=== PATIENT | female | born 1940 | race Caucasian/White ===

== ENCOUNTER 2016-09-22 13:53 | Outpatient (CLI) | payer MEDICARE | END 2016-09-22 13:54 | disposition critical access hospital (66) | LOC: EMS 13:53 | PROVIDERS: ATTEND Surgery | DX: S01.81XA Laceration without foreign body of other part of head, initial encounter (principal); W01.0XXA Fall on same level from slipping, tripping and stumbling without subsequent striking against object, initial encounter; Y92.512 Supermarket, store or market as the place of occurrence of the external cause | CPT/HCPCS: A0425; A0429 ==

== ENCOUNTER 2016-09-22 14:24 | Emergency (ER) | payer MEDICARE ==
[2016-09-22] MEDS ORDERED: LIDOCAINE 1% 2 ML VIAL ONE (15:28)
--- NOTE | 2016-09-22 16:59 | CT Report ---
EXAM: CT MAXILLOFACIAL WITHOUT CONTRAST EXAM DATE: 09/22/2016 04:10 PM. CLINICAL HISTORY: Fall, with chin contusion, malocclusion, TMJ pain. COMPARISONS: None. TECHNIQUE: Thin-section axial images were acquired of the face without contrast. Post-processing: Cor onal and sagittal reformats. Other: None. In accordance with CT protocol optimization, one or more of the following dose reduction techniques w ere utilized for this exam: automated exposure control, adjustment of mA and/or KV based on patient s ize, or use of iterative reconstructive technique. FINDINGS: Bones: Displaced fractures of the neck of the mandible on the right and the ramus of the mandible on the left. Temporomandibular Joints: The mandibular condyles are displaced forward in relation to the TMJ fossae . Sinuses: Normal. No mucosal thickening or fluid levels. Other: Degenerative disk disease noted at C4-C5. IMPRESSION: Displaced bilateral mandibular fractures, involving the neck on the right and involving t he ramus on the left. [facility] Referring Provider Line: [phone] SITE ID: [id number]
--- NOTE | 2016-09-22 17:15 | ED Physician Documentation ---
PD HPI Fall - Stated complaint Stated Complaint: GLF - Chief complaint Chief Complaint: Heent - History obtained from History obtained from: Patient - History of Present Illness Mechanism of injury: Tripped Fall distance: Standing position Where injury occurred: Other ([place]) Timing - onset: Today Injury(ies) location: Face Quality of pain: Pain Associated symptoms: Other (jaw pain and malloclusion). 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 She has a laceration to the tip of the chin and pain in the jaw bilaterally. She does have malocclusion on the left side. Review of Systems Constitutional: denies: Fever Eyes: denies: Decreased vision Ears: denies: Ear pain Nose: denies: Rhinorrhea / runny nose, Congestion Throat: denies: Sore throat Respiratory: denies: Cough GI: denies: Nausea, Vomiting PD PAST MEDICAL HISTORY - Past Medical History Past Medical History: Yes Cardiovascular: Hypertension - Past Surgical History Past Surgical History: No - Present Medications Home Medications: Ambulatory Orders Medication Instructions Recorded Confirmed Lisinopril 10 mg PO DAILY 09/22/16 09/22/16 - Allergies Allergies/Adverse Reactions: Allergies Allergy/AdvReac Type Severity Reaction Status Date / Time No Known Drug Allergies Allergy Verified 09/22/16 14:32 - Social History Does the pt smoke?: No Smoking Status: Never smoker Does the pt drink ETOH?: No Does the pt have substance abuse?: No PD ED PE NORMAL - Vitals Vital signs reviewed: Yes (hypertension ) - General General: Alert and oriented X 3, No acute distress, Well developed/nourished - HEENT HEENT: PERRL, EOMI, Other (There is a 2 and half centimeter laceration at the point of the chin without evidence of foreign material in the laceration. She is able to open her mouth and close her mouth and does have malocclusion on the left side. She does not have any intraoral bleeding.) - Neck Neck: Supple, no meningeal sign, No bony TTP - Respiratory Respiratory: No respiratory distress - Back Back: No spinal TTP - Derm Derm: Normal color, Warm and dry, No rash - Extremities Extremities: No deformity, No edema - Neuro Neuro: Alert and oriented X 3, liability claims representative 2-12 intact, No motor deficit, No sensory deficit, Normal speech - Psych Psych: Normal mood, Normal affect Results - Vitals Vitals: Vital Signs - 24 hr 09/22/16 09/22/16 14:31 17:58 Temperature 36.3 C L Heart Rate 87 64 Respiratory 16 16 Rate Blood Pressure 163/87 H 154/72 H O2 Saturation 99 100 Oxygen O2 Source Nasal cannula - Rads (name of study) CT facial bones. Radiology: Prelim report reviewed (Impression: Displaced bilateral mandibular fractures, involving the neck on the right and involving the ramus on the left.) , Final report received, EMP read indepedently, See rad report Procedures - Laceration (location) chin Length in cm: 2.5 Wound type: Linear, Irregular, Clean Neurovascular status: Sensory intact, Motor intact, Vascular intact Anesthesia: Lidocaine 1% Wound Preparation: Hibiclens, Irrigated copiously NS, Wound explored, To the base Skin layer closure: Nylon, Interrupted, Size #-0 - enter number (6-0) Other: Patient tolerated well, No complications, Neurovascular intact, Tetanus booster given Complexity: Simple PD MEDICAL DECISION MAKING - ED course Complexity details: reviewed old records, reviewed results, re-evaluated patient , considered differential, d/w patient, d/w senior solutions consultant (Dr. Tucker) ED course: 76-year-old female with a ground-level fall and lacerations to the chin has bilateral mandibular fracture. This is worse on the left than the right and she does have some malocclusion on that side. The laceration under chin is closed with 6-0 nylon and referral was made to Dr. Sohail Tucker in [place] the oral maxillofacial surgeon. Departure - Departure Disposition: 01 Home, Self Care Clinical Impression: Chin laceration Qualifiers: Encounter type: initial encounter Qualified Code(s): S01.81XA - Laceration without foreign body of other part of head, initial encounter Fracture, mandible Qualifiers: Encounter type: initial encounter Fracture type: closed Mandible location: ramus Laterality: left Qualified Code(s): S02.642A - Fracture of ramus of left mandible, initial encounter for closed fracture Condition: Stable Instructions: ED Laceration Facial Sutr Tape, ED Fx Mandible Follow-Up: SOHAIL TUCKER [Physician No Access] - Comments: Follow-up tomorrow morning at 8am with Dr. Sohail [place] in [place] [id number], [place] [address].. Discharge Date/Time: 09/22/16 17:58
[2016-09-22] MEDS ORDERED: TETANUS/DIPHTHERIA/PERTUSSIS 0.5 ML SYRINGE IM ONE (17:42)
[2016-09-22] MEDS: TETANUS/DIPHTHERIA/PERTUSSIS 0.5 ML SYRINGE IM ONE (17:42)
[2016-09-22 17:59] VITALS: BP 154/72
== END 2016-09-22 17:58 | disposition home or self-care (01) ==
LOC: EDUNIT# → ED 14:24
DX: S02.642A Fracture of ramus of left mandible, initial encounter for closed fracture (principal); S02.601A Fracture of unspecified part of body of right mandible, initial encounter for closed fracture; S01.81XA Laceration without foreign body of other part of head, initial encounter; W01.198A Fall on same level from slipping, tripping and stumbling with subsequent striking against other object, initial encounter; Y92.89 Other specified places as the place of occurrence of the external cause; Z23 Encounter for immunization; I10 Essential (primary) hypertension
CPT/HCPCS: 12011; 70486; 90471; 99283; 99284

== ENCOUNTER 2016-09-29 13:17 | Outpatient (CLI) | payer MEDICARE ==
[2016-09-29 17:57] LABS: BASOPHILS # (AUTO) 0.1 10^3/uL (0.0-0.1); BASOPHILS % (AUTO) 0.9 %; EOSINOPHILS # (AUTO) 0.2 10^3/uL (0.0-0.7); EOSINOPHILS % (AUTO) 3.2 %; HCT - HEMATOCRIT 39.1 % (37.0-47.0); MEAN CORPUSCULAR HEMOGLOBIN 34.7 pg (27.0-31.0); MEAN CORPUSCULAR HGB CONC 33.2 g/dL (32.0-36.0); MEAN CORPUSCULAR VOLUME 104.5 fL (81.0-99.0); MEAN PLATELET VOLUME 9.3 fL (7.9-10.8); MONOCYTES # (AUTO) 0.7 10^3/uL (0.0-1.0); MONOCYTES % (AUTO) 10.5 %; NEUTROPHILS # (AUTO) 3.6 10^3/uL (1.5-6.6); NEUTROPHILS % (AUTO) 54.4 %; NUCLEATED RED BLOOD CELLS AUTO 0.1 /100WBC; RED BLOOD COUNT 3.74 10^6/uL (4.20-5.40); RED CELL DISTRIBUTION WIDTH 13.1 % (12.0-15.0); UNCORRECTED WHITE BLOOD COUNT 6.6 x10^3/uL; WHITE BLOOD COUNT 6.6 x10^3/uL (4.8-10.8)
[2016-09-29 19:00] LABS: CALCIUM 9.2 mg/dL (8.5-10.3); CREATININE 0.8 mg/dL (0.4-1.0); POTASSIUM 3.9 mmol/L (3.5-5.0)
== END 2016-09-29 13:18 | disposition home or self-care (01) ==
LOC: LAB.S 13:17
PROVIDERS: ATTEND Dentist Oral and Maxillofacial Surgery
DX: S02.611A Fracture of condylar process of right mandible, initial encounter for closed fracture (principal); S02.612A Fracture of condylar process of left mandible, initial encounter for closed fracture
CPT/HCPCS: 36415; 80048; 85025

== ENCOUNTER 2017-03-19 08:10 | Outpatient (CLI) | payer MEDICARE ==
[2017-03-19 11:59] LABS: BUN - BLOOD UREA NITROGEN 9 mg/dL (6-20); CALCIUM 9.2 mg/dL (8.5-10.3); CARBON DIOXIDE - CO2 26 mmol/L (21-32); CHLORIDE 104 mmol/L (101-111); CHOL/HDL RATIO 2.6 (<4.4); CHOLESTEROL 228 mg/dL; CREATININE 0.9 mg/dL (0.4-1.0); GFR - MDRD 61 (>89); GLUCOSE 93 mg/dL (70-100); HDL CHOLESTEROL 88 mg/dL; LDL CHOLESTEROL,CALCULATED 126 mg/dL; LDL/HDL RATIO 1.4 (<4.4); SODIUM 138 mmol/L (135-145); VLDL CHOLESTEROL 14 mg/dL
== END 2017-03-19 08:11 | disposition home or self-care (01) ==
LOC: LAB.F 08:10
PROVIDERS: ATTEND Internal Medicine
DX: F32.9 Major depressive disorder, single episode, unspecified (principal); I10 Essential (primary) hypertension; Z13.6 Encounter for screening for cardiovascular disorders
CPT/HCPCS: 36415; 80048; 80061; 83721

== ENCOUNTER 2017-04-07 13:01 | Outpatient (CLI) | payer MEDICARE ==
--- NOTE | 2017-04-08 15:25 | DEXA Report ---
DEXA: 04/07/2017 CLINICAL INDICATION: Postmenopausal. TECHNIQUE: Dual energy x-ray absorptiometry (DXA) was performed on a [employer] system. Regions measured are the AP spine, femoral neck, and, if needed, forearm. COMPARISON: None. In accordance with the International Society for Clinical Densitometry (ISCD) guidelines, data from previous exams may be reanalyzed using current recommendations and techniques. This is done to allow a more accurate basis for comparison with the current study. FINDINGS The data for the lumbar spine is as follows: REGION BMD (g/cm/cm) T-SCORE Z-SCORE L1 0.631 -4.2 -1.7 L2 0.727 -3.9 -1.5 L3 0.848 -2.9 -0.4 L4 0.991 -1.7 0.8 L1-L4 0.808 -3.1 -0.6 NOTE: All evaluable vertebrae are used for classification. REGION BMD (g/cm/cm) T-SCORE Z-SCORE Neck 0.702 -2.4 0.0 TOTAL 0.686 -2.6 -0.2 NOTE: The femoral neck or total proximal femur, whichever is lowest, is used for classification. IMPRESSION THE WHO CLASSIFICATION BASED ON THE INTERNATIONAL REFERENCE STANDARD IS OSTEOPOROSIS. THE FRACTURE RISK IS HIGH. RECOMMENDATION: Patients with diagnosis of osteoporosis or osteopenia should have regular bone mineral density assessment. For those eligible for Medicare, routine testing is allowed once every 2 years. Testing frequency can be increased for patients who have rapidly progressing disease or for those who are receiving medical therapy to restore bone mass. COMMENT: World Health Organization (WHO) definitions for osteoporosis and osteopenia: NORMAL BMD: T-score at 1.0 or higher, fracture risk is low. OSTEOPENIA BMD: T-score between 1.0 and -2.5, fracture risk is increased. OSTEOPOROSIS BMD: T-score at 2.5 or lower, fracture risk high. National Osteoporosis Foundation recommends: 1. Obtain adequate dietary calcium (at least 1200 mg per day) and vitamin D (400 -800 international units per day). 2. Participate, as appropriate, in regular weightbearing and muscle- strengthening exercise. 3. Avoid tobacco use and reduce alcohol and caffeine intake. 4. For more detailed information see the website at www.NOF.org. TD: 04/07/2017 17:33 [email or web address]
== END 2017-04-07 13:02 | disposition home or self-care (01) ==
LOC: DI 13:01
PROVIDERS: ATTEND Internal Medicine
DX: M81.0 Age-related osteoporosis without current pathological fracture (principal)
CPT/HCPCS: 77080

== ENCOUNTER 2017-05-13 12:10 | Day surgery (SDC) | payer MEDICARE ==
[2017-05-13] MEDS ORDERED: LACTATED RINGERS 1,000 ML IV ONE (12:23)
[2017-05-13] MEDS ORDERED: MIDAZOLAM 2 MG/2 ML VIAL IVP ONE (14:02)
[2017-05-13] MEDS ORDERED: fentaNYL 100 MCG/2 ML VIAL IVP ONE (14:02)
[2017-05-13 15:28] VITALS: BP 102/65
== END 2017-05-13 12:11 | disposition home or self-care (01) ==
LOC: SDS 12:10
PROVIDERS: ATTEND Internal Medicine
PROC: 0DBP8ZZ Excision of Rectum, Via Natural or Artificial Opening Endoscopic (ICD-10-PCS; principal; 2017-05-13 13:30)
DX: Z12.11 Encounter for screening for malignant neoplasm of colon (principal); D12.8 Benign neoplasm of rectum; K64.8 Other hemorrhoids; K57.30 Diverticulosis of large intestine without perforation or abscess without bleeding
CPT/HCPCS: 45380; J7120; 88305

== ENCOUNTER 2017-06-02 07:54 | Outpatient (CLI) | payer MEDICARE ==
[2017-06-02 10:51] LABS: BUN - BLOOD UREA NITROGEN 13 mg/dL (6-20); CALCIUM 9.2 mg/dL (8.5-10.3); CARBON DIOXIDE - CO2 29 mmol/L (21-32); CHLORIDE 104 mmol/L (101-111); CHOL/HDL RATIO 2.4 (<4.4); CHOLESTEROL 216 mg/dL; CREATININE 0.8 mg/dL (0.4-1.0); GFR - MDRD 70 (>89); GLUCOSE 91 mg/dL (70-100); HDL CHOLESTEROL 89 mg/dL; LDL CHOLESTEROL,CALCULATED 114 mg/dL; LDL/HDL RATIO 1.3 (<4.4); SODIUM 140 mmol/L (135-145); VLDL CHOLESTEROL 13 mg/dL
== END 2017-06-02 07:55 | disposition home or self-care (01) ==
LOC: LAB.F 07:54
PROVIDERS: ATTEND Internal Medicine
DX: Z00.00 Encounter for general adult medical examination without abnormal findings (principal); R19.7 Diarrhea, unspecified; E78.5 Hyperlipidemia, unspecified; I10 Essential (primary) hypertension; Z12.11 Encounter for screening for malignant neoplasm of colon
CPT/HCPCS: 36415; 80048; 80061; 83721; 84443